=== PATIENT | female | born 1940 | race Caucasian/White ===

== ENCOUNTER 2021-01-22 07:41 | Emergency (ER) | payer OTHER ==
[~2021-01-22] VITALS: Ht 167.6 cm; Wt 75.8 kg
[~2021-01-22 07:41] MED LIST: ADULT LOW DOSE81 MG; ADVAIR 250-501 EACH; ALDACTONE25 MG PO; ALLEGRA60 MG; AMBIEN 5 MG TABL5 M1 PO; AMITRIPTYLINE H10 M1; APPEAREX2500 MCG; AVAPRO300 MG; B-100 COMPLEX1 EAC1; COREG25 MG PO; COZAAR100 MG; DILTIAZEM 24HR240 MG; ELIQUIS5 MG PO; FLONASE 0.05%50 MCG; GLUCOSAMINE &1 EACH; HYDROCHLOROTHIA25 M1; KEFLEX500 M1 PO; MUCINEX DM TABL1 TA1; NASAL SPRAY ORI30 ML; NORCO 5-325 TA1 EACH PO; OMEPRAZOLE20 M2; PACERONE 200 M200 MG; PACERONE200 MG PO; PRAVACHOL; PRAVACHOL40 MG; PROAIR HFA8.5 GM; PROAIR HFA8.5 GM INH; PROBIOTIC COMP1 EACH; PROBIOTIC1 EAC1 PO; SERTRALINE HCL25 M1; SPIRIVA; SPIRIVA INH; SPIRIVA18 MCG INH; SYNTHROID50 MCG PO; SYNTHROID75 MCG; TAZTIA; VITAMIN D1000 UNI1; VITAMIN D1000 UNI1 PO; VIVELLE-DOT1 EAC1; VOL-CARE RX TA1 EACH; XANAX 0.25 MG0.25 MG; XANAX 0.25 MG0.25 MG PO; XARELTO10 MG; ZYRTEC10 M2; ZYRTEC10 M5 PO
[2021-01-22 08:58] LABS: HEMOGLOBIN 11.8 gm/dL (12.0-15.0); MCH 29.5 pg (26.0-34.0); MCHC 32.9 g/dL (28.0-37.0); MCV 89.8 fL (80.0-100.0); RBC 4.01 mil/uL (4.20-5.00); RDW 14.3 % (10.5-14.5); WBC 6.9 thou/uL (4.0-11.0)
[2021-01-22 09:01] LABS: CALCIUM 8.5 mg/dL (8.5-10.1); POTASSIUM 4.4 mmol/L (3.5-5.1)
[2021-01-22 09:07] LABS: ALBUMIN 3.1 g/dL (3.4-5.0); TOTAL BILIRUBIN 0.4 mg/dL (0.2-1.0); TOTAL PROTEIN 5.9 g/dL (6.4-8.2)
[2021-01-22] MEDS ORDERED: XANAX 0.25 MG0.25 MG PO (09:07)
[2021-01-22] MEDS ORDERED: LIPITOR 20 MG T20 M1 PO (09:09)
[2021-01-22] MEDS ORDERED: PACERONE 200 M200 M1 PO (09:09)
[2021-01-22] MEDS ORDERED: CARVEDILOL12.5 MG PO (09:09)
[2021-01-22] MEDS ORDERED: CETIRIZINE HCL5 MG PO (09:10)
[2021-01-22] MEDS ORDERED: ELIQUIS5 MG PO (09:10)
[2021-01-22] MEDS ORDERED: FLOVENT DISKUS50 MCG INH (09:11)
[2021-01-22] MEDS ORDERED: FLONASE 0.05%50 MCG NASAL (09:11)
[2021-01-22] MEDS ORDERED: FUROSEMIDE 20 M20 MG PO (09:12)
[2021-01-22] MEDS ORDERED: LEVOTHYROXINE50 MC1 PO (09:13)
[2021-01-22] MEDS ORDERED: COZAAR 25 MG TA25 M2 PO (09:13)
[2021-01-22] MEDS ORDERED: OMEPRAZOLE 20 M20 M1 PO (09:13)
[2021-01-22] MEDS ORDERED: SPIRIVA RESPIMAT4 G1 INH (09:14)
[2021-01-22] MEDS ORDERED: PROBIOTIC1 EAC2 PO (09:15)
[2021-01-22] MEDS ORDERED: AMBIEN 5 MG TABL5 M1 PO (09:15)
[2021-01-22] MEDS ORDERED: DOXYCYCLINE 10100 MG PO ×3 (09:52→09:57)
[2021-01-22] MEDS ORDERED: VENTOLIN HFA 1818 GM INH (09:52)
[2021-01-22 10:05] VITALS: BP 158/69
--- NOTE | 2021-01-22 13:35 | EKG ---
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[place] : 1940 Requested By: Nicole Fairchild Order Number: [id number] MD: Nicholas Chen Measurements Intervals [place] Rate: 80 P: AL: QRS: 2 QRSD: 82 T: 10 QT: 383 QTc: 442 Interpretive Statements P waves not seen, suspect AFIB Compared to ECG 06/11/2017 19:28:08 Sinus rhythm no longer present Myocardial infarct finding no longer present Prolonged QT interval no longer present Electronically Signed On 01-22-2021 13:35:19 CDT by Nicholas Chen [email or web address] <ELECTRONICALLY SIGNED> By: Nicholas Chen MD, [facility] 01/22/21 1335 D: 06/821 1 Nicholas Chen MD, FAC /EPI
== END 2021-01-22 10:06 | disposition home or self-care (01) ==
LOC: ER 07:41
PROVIDERS: Student in an Organized Health Care Education/Training Program
DX: J44.1 Chronic obstructive pulmonary disease with (acute) exacerbation (principal); I10 Essential (primary) hypertension; E78.5 Hyperlipidemia, unspecified; Z90.711 Acquired absence of uterus with remaining cervical stump; Z90.49 Acquired absence of other specified parts of digestive tract; Z79.2 Long term (current) use of antibiotics; Z79.899 Other long term (current) drug therapy; Z88.1 Allergy status to other antibiotic agents; Z88.2 Allergy status to sulfonamides

== ENCOUNTER 2021-04-22 16:32 | Emergency (ER) | payer OTHER ==
[~2021-04-22] VITALS: Ht 154.9 cm; Wt 90.7 kg
[~2021-04-22 16:32] MED LIST changes: +CARVEDILOL12.5 MG PO; +CETIRIZINE HCL5 MG PO; +COZAAR 25 MG TA25 M2 PO; +DOXYCYCLINE 10100 MG PO; +FLONASE 0.05%50 MCG NASAL; +FLOVENT DISKUS50 MCG INH; +FUROSEMIDE 20 M20 MG PO; +LEVOTHYROXINE50 MC1 PO; +LIPITOR 20 MG T20 M1 PO; +OMEPRAZOLE 20 M20 M1 PO; +PACERONE 200 M200 M1 PO; +PROBIOTIC1 EAC2 PO; +SPIRIVA RESPIMAT4 G1 INH; +VENTOLIN HFA 1818 GM INH
[2021-04-22] MEDS ORDERED: DOXYCYCLINE 10100 MG PO (18:24)
[2021-04-22] MEDS ORDERED: MEDROLDOSEPACK PO ×2 (18:24→20:06)
[2021-04-22 20:03] VITALS: BP 160/88
== END 2021-04-22 20:19 | disposition home or self-care (01) ==
LOC: ER 16:32
DX: J18.8 Other pneumonia, unspecified organism (principal); Z20.822 Contact with and (suspected) exposure to COVID-19; I10 Essential (primary) hypertension; J44.9 Chronic obstructive pulmonary disease, unspecified; J45.909 Unspecified asthma, uncomplicated; E78.5 Hyperlipidemia, unspecified; Z90.49 Acquired absence of other specified parts of digestive tract; Z88.1 Allergy status to other antibiotic agents; Z88.2 Allergy status to sulfonamides; Z79.899 Other long term (current) drug therapy; Z79.1 Long term (current) use of non-steroidal anti-inflammatories (NSAID); Z79.51 Long term (current) use of inhaled steroids

== ENCOUNTER 2021-05-03 10:41 | Emergency (ER) | payer OTHER ==
[~2021-05-03] VITALS: Ht 152.4 cm; Wt 75.3 kg
[~2021-05-03 10:41] MED LIST changes: +MEDROLDOSEPACK PO
[2021-05-03 11:20] LABS: ABSOLUTE NEUTROPHILS 10.8 thou/uL (1.4-8.2); BASOPHILS 0.4 % (0.0-2.0); EOSINOPHILS 0.9 % (0.0-3.0); HEMATOCRIT 42.8 % (37.0-47.0); HEMOGLOBIN 13.4 gm/dL (12.0-15.0); LYMPHOCYTES 8.5 % (24.0-44.0); MCH 27.8 pg (26.0-34.0); MCHC 31.4 g/dL (28.0-37.0); MCV 88.7 fL (80.0-100.0); MONOCYTES 7.2 % (1.0-8.0); PLATELET COUNT 241 thou/uL (150-400); RBC 4.82 mil/uL (4.20-5.00); RDW 15.2 % (10.5-14.5)
[2021-05-03 12:06] LABS: CALCIUM 8.5 mg/dL (8.5-10.1); CREATININE 0.9 mg/dL (0.6-1.0); POTASSIUM 4.3 mmol/L (3.5-5.1)
[2021-05-03 12:16] LABS: ALBUMIN 2.8 g/dL (3.4-5.0); TOTAL BILIRUBIN 0.7 mg/dL (0.2-1.0); TOTAL PROTEIN 5.5 g/dL (6.4-8.2)
--- NOTE | 2021-05-03 13:24 | EKG ---
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
[2021-05-03 15:36] VITALS: BP 104/52
== END 2021-05-03 15:37 | disposition home or self-care (01) ==
LOC: ER 10:41
PROVIDERS: Emergency Medicine
DX: M25.512 Pain in left shoulder (principal); Z20.822 Contact with and (suspected) exposure to COVID-19; K21.9 Gastro-esophageal reflux disease without esophagitis; I10 Essential (primary) hypertension; J44.9 Chronic obstructive pulmonary disease, unspecified; E78.5 Hyperlipidemia, unspecified; Z90.49 Acquired absence of other specified parts of digestive tract; Z88.1 Allergy status to other antibiotic agents; Z88.2 Allergy status to sulfonamides